=== PATIENT | female | born 1950 | race Caucasian/White ===

== ENCOUNTER 2017-01-14 12:34 | Emergency (ER) | payer MEDICARE, BC ==
--- NOTE | 2017-01-14 13:34 | Emergency Department Record ---
History of Present Illness - General Chief Complaint: Cough Stated Complaint: BRONCHITIS,COUGH, JAK Time Seen by Provider: 01/14/17 13:16 Source: Patient Mode of Arrival: Ambulatory Limitations: No limitations - History of Present Illness Initial Comments: pt has been sick with a chest cold for 3 days w fever/sweats/chills/cough. she has burning in her chest w coughing MD Complaint: Cough, Fever, Nasal congestion Onset/Timin -: Days(s) Severity scale (1-10): 5 Consistency: Constant Improves With: Nothing Worsens With: Deep breaths Associated Symptoms: Chest pain, Cough, Nasal congestion, Shortness of breath - Related Data Allergies Allergy/AdvReac Type Severity Reaction Status Date / Time aspirin Allergy VOMITING Unverified 01/13/17 11:43 codeine Allergy VOMITING Unverified 01/13/17 11:43 hydromorphone HCl Allergy ANAPHYLAXIS Unverified 01/13/17 11:43 [From Dilaudid] ibuprofen Allergy VOMITING Unverified 01/13/17 11:43 morphine Allergy DIFFICULTY Unverified 01/13/17 11:43 BREATHING oxycodone HCl Allergy VOMITING Unverified 01/13/17 11:43 [From OxyContin] Penicillins Allergy HIVES Unverified 01/13/17 11:43 prednisone Allergy TACHYCARDIA Unverified 01/13/17 11:43 Travel Screening - Travel/Exposure Within Last 30 Days Have you traveled within the last 30 days?: No Review of Systems Reviewed: No additional complaints except as noted below Constitutional: Reports: As per HPI. Denies: Chills, Fever, Malaise, Night sweats, Weakness, Weight change Eyes: Reports: As per HPI. Denies: Eye discharge, Eye pain, Photophobia, Vision change ENT: Reports: As per HPI. Denies: Congestion, Dental pain, Ear pain, Epistaxis , Hearing loss, Throat pain Respiratory: Reports: As per HPI. Denies: Cough, Dyspnea, Hemoptysis, Stridor, Wheezes Cardiovascular: Reports: As per HPI. Denies: Arrhythmia, Chest pain, Dyspnea on exertion, Edema, Murmurs, Orthopnea, Palpitations, Paroxysmal nocturnal dyspnea, Rheumatic Fever, Syncope Endocrine: Reports: As per HPI. Denies: Fatigue, Heat or cold intolerance, Polydipsia, Polyuria Gastrointestinal: Reports: As per HPI. Denies: Abdominal pain, Constipation, Diarrhea, Hematemesis, Hematochezia, Melena, Nausea, Vomiting Genitourinary: Reports: As per HPI. Denies: Abnormal menses, Discharge, Dyspareunia, Dysuria, Frequency, Hematuria, Incontinence, Retention, Urgency Musculoskeletal: Reports: As per HPI. Denies: Arthralgia, Back pain, Gout, Joint swelling, Myalgia, Neck pain Skin: Reports: As per HPI. Denies: Bruising, Change in color, Change in hair/ nails, Lesions, Pruritus, Rash Neurological: Reports: As per HPI. Denies: Abnormal gait, Confusion, Headache, Numbness, Paresthesias, Seizure, Tingling, Tremors, Vertigo, Weakness Psychiatric: Reports: As per HPI. Denies: Anxiety, Auditory hallucinations, Depression, Homicidal thoughts, Suicidal thoughts, Visual hallucinations Hematological/Lymphatic: Reports: As per HPI. 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 - Hx Genitourinary Disorders: No - ENDOCRINE Hx Endocrine Disorders: Yes Hx Thyroid Disease: Yes (hypothyroidism) - MUSCULOSKELETAL Hx Musculoskeletal Disorders: Yes Hx Arthritis: Yes - PSYCH Hx Psych Problems: No - HEMATOLOGY/ONCOLOGY Hx Hematology/Oncology Disorders: No Family Medical History Any Significant Family History?: Yes Hx Cancer: Father, Grandparents Physical Exam - General General Appearance: Alert, Oriented x3, Cooperative, Mild distress - Head Head exam: Normal inspection - Eye Eye exam: Normal appearance, PERRL, EOMI Pupils: Normal accommodation - ENT ENT exam: Normal exam, Mucous membranes moist, Normal external ear exam, Normal orophraynx Ear exam: Normal external inspection. negative: External canal tenderness Nasal Exam: Normal inspection. negative: Discharge, Sinus tenderness Mouth exam: Normal external inspection, Tongue normal Teeth exam: Normal inspection. negative: Dental caries Throat exam: Normal inspection. negative: Tonsillar erythema, Tonsillar exudate - Neck Neck exam: Normal inspection, Full ROM. negative: Tenderness - Respiratory Respiratory exam: Rales. negative: Respiratory distress - Cardiovascular Cardiovascular Exam: Regular rate, Normal rhythm, Normal heart sounds - GI/Abdominal GI/Abdominal exam: Soft, Normal bowel sounds. negative: Tenderness - Rectal Rectal exam: Deferred - exam: Deferred - Extremities Extremities exam: Normal inspection, Full ROM, Normal capillary refill. negative: Tenderness - Back Back exam: Reports: Normal inspection, Full ROM. Denies: Muscle spasm, Rash noted, Tenderness - Neurological Neurological exam: Alert, CN II-XII intact, Normal gait, Oriented X3, Reflexes normal - Psychiatric Psychiatric exam: Normal affect, Normal mood - Skin Skin exam: Dry, Intact, Normal color, Warm Course Vital Signs 01/14/17 12:50 Temperature 98.0 F Pulse Rate 60 Respiratory 20 Rate Blood Pressure 142/86 Pulse Ox 96 Medical Decision Making - Lab Data Result diagrams: 01/14/17 13:30 01/14/17 13:30 Disposition Disposition: Discharge Clinical Impression: Pneumonia Qualifiers: Pneumonia type: due to unspecified organism Laterality: left Lung location: lower lobe of lung Qualified Code(s): J18.1 - Lobar pneumonia, unspecified organism Disposition: Home, Self-Care Condition: (1) Good Instructions: Pneumonia (ED) Additional Instructions: follow up with family doctor. return sooner if worse. continue antibiotics. Forms: Patient Portal Access Quality - Quality Measures Quality Measures: N/A - Blood Pressure Screening Does Patient Have Any of the Following: No Blood Pressure Classification: Pre-Hypertensive BP Reading Systolic Measurement: 142 Diastolic Measurement: 86 Screening for High Blood Pressure: < Pre-Hypertensive BP, F/U Documented > [ G8950] Pre-Hypertensive Follow-up Interventions: Follow-up with rescreen every year.
[2017-01-14 13:50] LABS: BASO % 0.2 % (0-6); EOS % 2.7 % (0-6); GRAN % 64.9 % (47-80); HEMATOCRIT 34.3 % (35.0-47.0); HEMOGLOBIN 11.1 gm/dl (11.6-16.0); MEAN CELL VOLUME 95.3 fl (81-97); MEAN CORPUSCULAR HEMOGLOBIN 30.8 pg (27-33); MEAN CORPUSCULAR HGB CONC 32.4 g/dl (32-36); MEAN PLATELET VOLUME 9.4 fl (7.4-10.4); MONO % 7.2 % (0-9); PLATELET COUNT 214 K/uL (130-400); WHITE BLOOD COUNT W/O DIFF 8.2 K/uL (4.2-12.2)
[2017-01-14 14:05] LABS: BLOOD UREA NITROGEN 16 mg/dL (8-23); CREATININE 0.9 mg/dL (0.5-0.9); EST GLOMERULAR FILTRATION RATE > 60 mL/min; GLUCOSE,RANDOM 99 mg/dL (74-109)
[2017-01-14 14:12] LABS: NTpro B-NATRIURETIC PEPTIDE 71.12 pg/mL (<125)
[2017-01-14] MEDS ORDERED: IPRATROPIUM/ALBUTEROL (0.5MG/3MG) NEB INH ONE (14:29)
--- NOTE | 2017-01-14 15:06 | RADIOLOGY REPORT ---
EXAM: CHEST, TWO VIEWS HISTORY: CHEST PAIN. TECHNIQUE: Frontal and lateral views of the chest were performed. Comparison: 01/13/17. FINDINGS: The heart size is normal. No pulmonary vascular congestion. No infiltrate or pleural effusion. There is minimal atelectasis in the left lung base. IMPRESSION: NO ACUTE PULMONARY DISEASE PROCESS. JOB NUMBER: [id number] MTDD
== END 2017-01-14 14:54 | disposition home or self-care (01) ==
LOC: ER 12:34
DX: J18.1 Lobar pneumonia, unspecified organism (principal)
CPT/HCPCS: 71020; 80048; 83880; 85025; 94640; 99283; 99284

== ENCOUNTER 2017-10-22 12:13 | Emergency (ER) | payer MEDICARE, BC ==
--- NOTE | 2017-10-22 13:03 | Emergency Department Record ---
History of Present Illness - General Chief Complaint: Back Pain/Injury Stated Complaint: BACK PAIN Time Seen by Provider: 10/22/17 12:32 Source: Patient Mode of Arrival: Ambulatory Limitations: No limitations - History of Present Illness Initial Comments: The patient is here due to worsening of her chronic back pain. She states she overdid it at home with bending and lifting and now she is having an increase in her chronic pain. She is having intermittent radiation of pain to the back of the R leg with movement. She denies any leg weakness, numbness, or any bowel or bladder issues. She is ambulating normally but with a slight increase in her chronic pain. The patient has a hx of multiple back surgeries and is on multiple chronic pain medicines for this. The patient also denies any fall or trauma. MD Complaint: Back pain Onset/Timin -: Days(s) Place: Home Severity: Moderate Severity scale (1-10): 10 Quality: Aching, Burning, Sharp Context: Bending, Turning/twisting Treatments Prior to Arrival: Other medications - Related Data Home Medications Medication Instructions Recorded Confirmed Last Taken Magnesium Oxide [Mag Ox] 400 mg PO DAILY 10/22/17 10/22/17 1 Day Ago ~10/21/17 Previous Rx's Medication Instructions Recorded Methylprednisolone [Medrol Dose 4 mg PO DAILY #1 tab.ds.pk 10/22/17 Pack] Allergies Allergy/AdvReac Type Severity Reaction Status Date / Time aspirin Allergy VOMITING Unverified 03/31/17 12:49 codeine Allergy VOMITING Unverified 03/31/17 12:49 hydromorphone HCl Allergy ANAPHYLAXIS Unverified 03/31/17 12:49 [From Dilaudid] ibuprofen Allergy VOMITING Unverified 03/31/17 12:49 morphine Allergy DIFFICULTY Unverified 03/31/17 12:49 BREATHING oxycodone HCl Allergy VOMITING Unverified 03/31/17 12:49 [From OxyContin] Penicillins Allergy HIVES Unverified 03/31/17 12:49 prednisone Allergy TACHYCARDIA Unverified 03/31/17 12:49 Travel Screening - Travel/Exposure Within Last 30 Days Have you traveled within the last 30 days?: No - Travel/Exposure Within Last Year Have you traveled outside the [place] 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 - Hx Genitourinary Disorders: No - ENDOCRINE Hx Endocrine Disorders: Yes Hx Thyroid Disease: Yes (hypothyroidism) - MUSCULOSKELETAL Hx Musculoskeletal Disorders: Yes Hx Arthritis: Yes - PSYCH Hx Psych Problems: No - HEMATOLOGY/ONCOLOGY Hx Hematology/Oncology Disorders: No Family Medical History Any Significant Family History?: Yes Hx Cancer: Father, Grandparents Physical Exam - General General Appearance: Alert, Oriented x3, Cooperative, No acute distress - Head Head exam: Atraumatic, Normocephalic, Normal inspection - Eye Eye exam: Normal appearance, PERRL - Neck Neck exam: Normal inspection, Full ROM. negative: Tenderness - Respiratory Respiratory exam: Normal lung sounds bilaterally. negative: Respiratory distress - Cardiovascular Cardiovascular Exam: Regular rate, Normal rhythm, Normal heart sounds - Extremities Extremities exam: Normal inspection, Full ROM, Normal capillary refill, Other ( Neg SLR bilaterally.). negative: Tenderness - Back Back exam: Reports: Normal inspection, Paraspinal tenderness (There is tenderness to the lower lumbar area bilaterally. ). Denies: Muscle spasm, Vertebral tenderness - Neurological Neurological exam: Alert, Normal gait, Oriented X3, Reflexes normal. negative: Abnormal gait, Motor sensory deficit Course Vital Signs 10/22/17 12:25 Temperature 97.8 F Pulse Rate 62 Respiratory 20 Rate Blood Pressure 146/70 Pulse Ox 98 - Reevaluation(s) Reevaluation #1: The patient states she has multiple other pain medicines at home and would like a steroid injection for inflammation. She is driving here and has multiple allergies. I did discuss the Solumedrol shot with her and she will start a Medrol dose pack at home tomorrow. 10/22/17 13:20 Reevaluation #2: I did discuss the possible Prednisone allergy. The patient states it was only with high dose Prednisone and would like to try the Solumedrol and Medrol Dose Pack. She understands the risk of allergy and accepts the risks. 10/22/17 13:24 Disposition Disposition: Discharge Clinical Impression: Chronic back pain Qualifiers: Back pain location: back pain in unspecified location Back pain laterality: unspecified Qualified Code(s): M54.9 - Dorsalgia, unspecified Disposition: Home, Self-Care Condition: (2) Stable Instructions: Chronic Back Pain (ED) Additional Instructions: Please continue your regular pain medicines and start the Medrol Dose Pack tomorrow. Please see your family doctor for recheck in 2-3 days. Return to the ER for any worsening pain, leg numbness, weakness, or any bowel or bladder issues. Prescriptions: Methylprednisolone [Medrol Dose Pack] 4 mg PO DAILY #1 tab.ds.pk Forms: Patient Portal Access Time of Disposition: 13:24 Quality - Quality Measures Quality Measures: N/A - Blood Pressure Screening View Details: Yes Does Patient Have Any of the Following: No Blood Pressure Classification: Pre-Hypertensive BP Reading Systolic Measurement: 127 Diastolic Measurement: 78 Screening for High Blood Pressure: < Pre-Hypertensive BP, F/U Documented > [ G8950] Pre-Hypertensive Follow-up Interventions: Referral to alternative/primary care provider.
[2017-10-22] MEDS ORDERED: METHYLPREDNISOLONE PF 125MG/VIAL IM ONE (13:07)
== END 2017-10-22 13:46 | disposition home or self-care (01) ==
LOC: ER 12:13
DX: G89.29 Other chronic pain (principal); M54.5 Low back pain; I10 Essential (primary) hypertension; Z87.891 Personal history of nicotine dependence
CPT/HCPCS: 96372; 99283; J2930